=== PATIENT | female | born 1985 | race American Indian/Alaskan Native ===

== ENCOUNTER 2019-03-26 11:46 | Emergency (ER) | payer MEDICAID ==
--- NOTE | 2019-03-26 12:03 | Emergency Department Report ---
Blank Doc - Documentation Documentation: This is a 33-year-old female that presents with left knee pain and swelling. A lso has some redness and open wound to area. This initial assessment/diagnostic orders/clinical plan/treatment(s) is/are subject to change based on patient's health status, clinical progression and re- assessment by fellow clinical providers in the ED. Further treatment and workup at subsequent clinical providers discretion. Patient/guardians urged not to elope from the ED as their condition may be serious if not clinically assessed and managed. Initial orders include: 1- Patient sent to [facility] for further evaluation and treatment 2- xray
--- NOTE | 2019-03-26 12:39 | XRay Report ---
LEFT KNEE 3 VIEW(S) INDICATION / CLINICAL INFORMATION: knee pain with history of left leg fracture. COMPARISON: None available. FINDINGS: BONES / JOINT(S): There is a mildly displaced osteochondral fracture involving the articular surface of the medial femoral condyle. Fracture appears subacute to chronic in appearance. There is an old, h ealed fracture of the proximal left fibular shaft. Patient is subjectively osteopenic. Small moderate joint effusion. SOFT TISSUES: Mild to moderate anteromedial soft tissue swelling. ADDITIONAL FINDINGS: None. Signer Name: Leroy Parisi MD Signed: 03/26/2019 12:34 PM Workstation Name: [id number]
[2019-03-26] MEDS ORDERED: ANCEF IM STA (13:23)
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
[2019-03-26 13:28] LABS: Basophils # (Auto) 0.1 K/mm3 (0.0-0.1); Basophils % (Auto) 0.9 % (0.0-1.8); Eosinophils # (Auto) 0.1 K/mm3 (0.0-0.4); Eosinophils % (Auto) 1.7 % (0.0-4.3); Hematocrit 36.2 % (30.3-42.9); Hemoglobin 12.2 gm/dl (10.1-14.3); Lymphocytes # (Auto) 2.1 K/mm3 (1.2-5.4); Mean Corpuscular HGB Conc 34 % (30-34); Mean Corpuscular Volume 93 fl (79-97); Monocytes # (Auto) 0.7 K/mm3 (0.0-0.8); Monocytes % (Auto) 9.3 % (0.0-7.3); Platelet Count 450 K/mm3 (140-440); Red Blood Count 3.91 M/mm3 (3.65-5.03); Red Cell Distribution Width 14.3 % (13.2-15.2)
[2019-03-26] MEDS ORDERED: WATER FOR INJ Sterile (PF) 10 ML ONE (13:42)
[2019-03-26 13:59] LABS: Alanine Aminotransferase 7 units/L (7-56); Albumin 3.4 g/dL (3.9-5); BUN/Creatinine Ratio 15; Blood Urea Nitrogen 9 mg/dL (7-17); Calcium 8.9 mg/dL (8.4-10.2); Hemolysis Index 30
[2019-03-26 15:55] VITALS: BP 132/94
== END 2019-03-26 15:50 | disposition home or self-care (01) ==
LOC: ED 11:46
DX: S80.212A Abrasion, left knee, initial encounter (principal); M25.462 Effusion, left knee; L03.116 Cellulitis of left lower limb; F20.9 Schizophrenia, unspecified; F17.200 Nicotine dependence, unspecified, uncomplicated; X58.XXXA Exposure to other specified factors, initial encounter; Y93.89 Activity, other specified; Y92.89 Other specified places as the place of occurrence of the external cause; Y99.8 Other external cause status
CPT/HCPCS: 36415; 73562; 80053; 85025; 96372; 99283; J0690